=== PATIENT | female | born 1965 | race African-American/Black ===

== ENCOUNTER 2023-03-11 23:37 | Emergency (ER) | payer MEDICAID ==
[~2023-03-11] VITALS: Ht 162.6 cm; Wt 59.0 kg
[2023-03-11 23:55] VITALS: BP_SYST 125; PULSE 80; RESP 19; TEMP 97.9; O2SAT 98
[2023-03-12] MEDS ORDERED: FLUT16SP16 NS (00:19)
[2023-03-12] MEDS ORDERED: PERM60CR18 TP (00:19)
[2023-03-12 01:55] VITALS: BP_SYST 128; PULSE 80; RESP 15; TEMP 97.3; O2SAT 99
== END 2023-03-12 00:35 | disposition home or self-care (01) ==
LOC: SED 23:37
DX: B85.2 Pediculosis, unspecified (principal); J34.89 Other specified disorders of nose and nasal sinuses; Z79.899 Other long term (current) drug therapy
CPT/HCPCS: 99283

== ENCOUNTER 2023-12-28 00:45 | Emergency (ER) | payer MEDICAID ==
[~2023-12-28] VITALS: Ht 160 cm; Wt 54.4 kg
[~2023-12-28 00:45] MED LIST: FLUT16SP16 NS; PERM60CR18 TP
[2023-12-28 00:56] VITALS: BP_SYST 168; PULSE 85; RESP 19; TEMP 96.8; O2SAT 99
[2023-12-28 03:26] LABS: BASOPHILS % (AUTO) 0.4 % (0.0-2.0); EOSINOPHILS # (AUTO) 1.2 K/uL (0.0-0.4); EOSINOPHILS % (AUTO) 21.7 % (0.0-4.0); HEMATOCRIT 35.5 % (36-48); HEMOGLOBIN 11.8 g/dL (12.0-16.0); LYMPHOCYTES # (AUTO) 1.6 K/uL (1.0-5.5); LYMPHOCYTES % (AUTO) 27.8 % (20.5-51.5); MEAN CORPUSCULAR HEMOGLOBIN 31 pg (27-31); MEAN CORPUSCULAR HGB CONC 33 % (32-36); MEAN CORPUSCULAR VOLUME 92 fL (79.0-98.0); MONOCYTES # (AUTO) 0.4 K/uL (0.0-1.0); MONOCYTES % (AUTO) 7.7 % (1.7-9.3); NEUTROPHILS # (AUTO) 2.4 K/uL (1.8-7.7); NEUTROPHILS % (AUTO) 42.4 % (40.0-70.0); PLATELET COUNT (AUTO) 197 K/uL (130-430); RED BLOOD CELL COUNT(AUTO) 3.84 MIL/uL (4.2-6.2); RED CELL DISTRIBUTION WIDTH 14.3 % (9.0-15.0); WHITE BLOOD COUNT (AUTO) 5.7 K/uL (4.8-10.8)
[2023-12-28 03:27] LABS: ALANINE AMINOTRANSFERASE 11 U/L (12-78); ALBUMIN 3.3 g/dL (3.4-4.8); ANION GAP 5 (5-15); ASPARTATE AMINOTRANSFERASE 24 U/L (10-37); BILIRUBIN,DIRECT 0.1 mg/dL (0.0-0.3); CALCIUM 8.7 mg/dL (8.4-11.0); CARBON DIOXIDE 32 mmol/L (23-29); CHLORIDE 108 mmol/L (98-107); CREATININE 1.12 mg/dL (0.55-1.30); GFR AFRICAN AMERICAN 64 mL/min (>90); GLUCOSE 109 mg/dL (74-106); LIPASE 47 U/L (16-77); POTASSIUM 3.6 mmol/L (3.5-5.1); SALICYLATE 2 mg/dL (3-30); SODIUM SERUM 145 mmol/L (136-145); TOTAL BILIRUBIN 0.2 mg/dL (0.0-1.0); UREA NITROGEN, BLOOD 15 mg/dL (8-21)
[2023-12-28 03:28] LABS: ACETAMINOPHEN < 1 ug/mL (1-30); ALCOHOL, BLOOD < 3 mg/dL (<10); GFR NON AFRICAN-AMERICAN 53 mL/min (>90)
[2023-12-28 03:52] LABS: BILIRUBIN,URINE NEGATIVE (NEGATIVE); BLOOD, URINE 1+ (NEGATIVE); COLOR,URINE YELLOW (YELLOW); GLUCOSE,URINE NEGATIVE (NEGATIVE); KETONES,URINE NEGATIVE (NEGATIVE); LEUKOCYTE ESTERASE ,URINE NEGATIVE (NEGATIVE); NITRITE, URINE NEGATIVE (NEGATIVE); PH,URINE 6.5 (5.0-8.0); PROTEIN URINE NEGATIVE (NEGATIVE); UROBILINOGEN,URINE 0.2 (0.2-1.0)
[2023-12-28 04:05] LABS: CLARITY/URINE HAZY (CLEAR)
[2023-12-28 04:06] LABS: BACTERIA,URINE FEW /HPF (None Seen); WBC,URINE 0-3 /HPF (0-3)
[2023-12-28 04:08] LABS: BARBITURATE, URINE NEGATIVE (NEG <=200); BENZODIAZEPINE, URINE NEGATIVE (NEG <=150); CANNABINOID, URINE NEGATIVE (NEG <=50); COCAINE, URINE NEGATIVE (NEG <=150); METHAMPHETAMINES SCREEN,URINE NEGATIVE (NEG <=500); OPIATE, URINE NEGATIVE (NEG <=100); PHENCYCLIDINE SCREEN,URINE NEGATIVE (NEG <=25); URINE AMPHETAMINE NEGATIVE (NEG <=500); URINE METHADONE NEGATIVE (NEG <=200); URINE OXYCODONE SCREEN NEGATIVE (NEG <=100)
[2023-12-28 04:09] LABS: UR TRICYCLIC ANTIDEPRESSANTS NEGATIVE (NEG <=300)
[2023-12-28] MEDS ORDERED: ONDA-8 TL (04:40)
[2023-12-28] MEDS ORDERED: PERM60CR18 TP (04:47)
[2023-12-28] MEDS ORDERED: [UNRECOGNIZED DRUG - CODE] MC (04:54)
[2023-12-28 05:13] VITALS: BP_SYST 157; PULSE 103; RESP 16; TEMP 96.8; O2SAT 97
== END 2023-12-28 05:03 | disposition home or self-care (01) ==
LOC: SED 00:45
DX: B85.2 Pediculosis, unspecified (principal); B86 Scabies; R11.2 Nausea with vomiting, unspecified; Z59.00 Homelessness unspecified; Z79.899 Other long term (current) drug therapy
CPT/HCPCS: 99283; 80307; 80076; 80048; 81001; 83690; 85025; 36415; 81025; G0482; G0480; G0481; 81000; 81015